=== PATIENT | female | born 1995 | race Caucasian/White ===

== ENCOUNTER 2017-07-30 13:39 | Emergency (ER) | payer BC ==
[~2017-07-30] VITALS: Ht 177.8 cm; Wt 79.5 kg
[2017-07-30 13:42] VITALS: BP 151/68; TEMP 98.3
[2017-07-30] MEDS ORDERED: BIRTH CONTROL (13:45)
[2017-07-30] MEDS ORDERED: ZORVOLEX18 MG (13:45)
[2017-07-30] MEDS ORDERED: PHENERGAN 25 TA25 MG PO (14:56)
[2017-07-30 15:46] VITALS: PULSE 67
== END 2017-07-30 15:47 | disposition home or self-care (01) ==
LOC: COL.ER 13:39
DX: G43.809 Other migraine, not intractable, without status migrainosus (principal)
CPT/HCPCS: J1885

== ENCOUNTER → 2017-08-09 | Outpatient (CLI) | payer BC ==
[~2017-08-09] MED LIST: BIRTH CONTROL; PHENERGAN 25 TA25 MG PO; ZORVOLEX18 MG
== END ==
LOC: COL.RAD 08-07 12:30
DX: Q04.8 Other specified congenital malformations of brain (principal)
CPT/HCPCS: A9585